=== PATIENT | female | born 1980 | race Caucasian/White ===

== ENCOUNTER 2016-08-13 07:15 | Day surgery (SDC) | payer OTHER ==
[2016-08-10 16:56] VITALS: BMI 41.6
[~2016-08-13] VITALS: Ht 154.9 cm; Wt 105.2 kg
[2016-08-13] VITALS (13 sets, daily range): BP systolic 107–145; BP diastolic 58–88; PULSE 58–76; RESP 13–20; Ht 154.9 cm; Wt 105.2 kg
[~2016-08-13 07:15] MED LIST: CEPH-443 PO; HYDR-3498 PO
[2016-08-13] MEDS ORDERED: CEFAZOLIN 2 GM/50 ML (PMX) 50 ML IVPB ONE (11:00)
[2016-08-13] MEDS ORDERED: SOD CHLORIDE 0.9% 1,000 ML IV SCH (11:00)
[2016-08-13] MEDS ORDERED: ROCURONIUM 50 MG INJ ONE ×2 (11:04→12:08)
[2016-08-13] MEDS ORDERED: PROPOFOL 20 ML ONE (11:04)
[2016-08-13] MEDS ORDERED: MIDAZOLAM 1 MG/ML 2 ML INJ ONE (11:05)
[2016-08-13] MEDS ORDERED: FENTAnyl 50 MCG/ML VIAL ONE ×2 (11:05→12:16)
[2016-08-13] MEDS ORDERED: BUPIVACAINE 0.25% (MPF) 30 ML INJ ONE (11:10)
[2016-08-13] MEDS ORDERED: NEOSTIGMINE 3 MG/3 ML SYRINGE ONE (11:59)
[2016-08-13] MEDS ORDERED: ONDANSETRON 4 MG INJ ONE (11:59)
[2016-08-13] MEDS ORDERED: CEFAZOLIN 1 GM INJ ONE (11:59)
[2016-08-13] MEDS ORDERED: GLYCOPYRROLATE 0.4 MG INJ ONE (11:59)
[2016-08-13] MEDS ORDERED: KETOROLAC 30 MG INJ ONE (11:59)
[2016-08-13] MEDS ORDERED: DEXAMETHASONE 4 MG/ML 1 ML INJ ONE (11:59)
[2016-08-13] MEDS ORDERED: METOCLOPRAMIDE 10 MG INJ ONE (11:59)
[2016-08-13] MEDS ORDERED: hydrALAzine 20 MG INJ IV PRN (13:00)
[2016-08-13] MEDS ORDERED: LABETALOL HCL 20MG INJ IV PRN (13:00)
[2016-08-13] MEDS ORDERED: HYDROmorphONE (0.2 MG/ML) 10ML SYG IV PRN ×3 (13:00)
[2016-08-13] MEDS ORDERED: DIPHENHYDRAMINE 50 MG INJ IV PRN (13:00)
[2016-08-13] MEDS ORDERED: HYDROCODONE/APAP (5/325) TAB PO ONE (13:00)
[2016-08-13] MEDS ORDERED: EPHEDrine SULFATE 50 MG/5 ML SYG IV PRN (13:00)
[2016-08-13] MEDS ORDERED: ONDANSETRON 4 MG INJ IV PRN (13:00)
[2016-08-13] MEDS ORDERED: MEPERIDINE 25 MG INJ IV PRN (13:00)
[2016-08-13] MEDS ORDERED: morphine (1 MG/ML) 10ML SYRINGE IV PRN ×3 (13:00)
--- NOTE | 2016-08-13 14:08 | OPR ---
DATE OF OPERATION: DATE OF OPERATION: 08/13/2016 INDICATION: This is a 35-year-old female with symptomatic gallstones. She requests surgical excision. Risks, alternatives, benefits, and personnel were discussed with the patient. Patient expressed understanding and consents to the operation. PREOPERATIVE DIAGNOSIS: Symptomatic gallstones. POSTOPERATIVE DIAGNOSIS: Symptomatic gallstones. OPERATION: Laparoscopic cholecystectomy. SURGEON: Afsaneh Smith MD TUBE BUILDER: Ramón Mata SPECIMENS: Gallbladder. COMPLICATIONS: None. ANESTHESIA: General. PROCEDURE: The patient was taken to the OR, prepped and draped in the usual sterile fashion. Surgical timeout was performed. IV antibiotics were given. Infraumbilical incision was made transversely with a 15 blade. Dissection cautery was carried down to the fascia, which was divided with the curved Ramirez scissors; 0 Vicryl U-stitch was placed in the fascia. Balloon Rachelle trocar was introduced. Pneumoperitoneum established. Midepigastric 12-mm optical trocar and right upper quadrant and right upper flank 5-mm optical trocars were placed under direct visualization. Upon initial inspection, there were some adhesions to the gallbladder, which were taken down bluntly. The cystic duct was identified. The critical view was established. The cystic duct was divided using a 35-mm [place] vascular load stapler. The cystic artery is divided with 2 clips proximal, 1 clip distal. Gallbladder was taken off the gallbladder bed. There was good hemostasis. Gallbladder was retrieved using an EndoCatch bag. There was minimal spillage. Suction irrigation was used. Ports were removed under direct visualization. 0 Vicryl U-stitch was tied down. Skin was closed using skin dereck. Local anesthesia was injected. Dry dressings were applied. Dictated By: AFSANEH JUNG/DEBI Conf#: [id number] DID#: [id number] CRISTIANO
== END 2016-08-13 14:40 | disposition home or self-care (01) ==
LOC: SDS 07:15
PROVIDERS: ATTEND Surgery
DX: K80.10 Calculus of gallbladder with chronic cholecystitis without obstruction (principal); E66.9 Obesity, unspecified; Z68.41 Body mass index [BMI] 40.0-44.9, adult
CPT/HCPCS: 47562; 84703; 88304; J0690; J1100; J1170; J1885; J2250; J2405; J2710; J2765; J3010; Z7512; Z7610